=== PATIENT | female | born 1940 | race Caucasian/White ===

== ENCOUNTER 2021-09-03 09:01 | Inpatient (IN) | payer MEDICARE ==
[~2021-09-03] VITALS: Ht 160 cm; Wt 78.0 kg
--- NOTE | ~2021-09-03 | EMS ---
[address] [address] EMS Patient Care Report Name: ZHANNA BELL Room #: REG ERNA Wray#: [id number] Admission: 09/03/21 Attend Phys: Discharge: Date of : 44 Report #: [id number] THIS REPORT FOR: //name// Report Transmitted: 09/03/2021 08:27 EMS Care Summary [facility] MED-ACT Incident [id number] @ 09/03/2021 08:16 Incident Location [address] [place] [address] Patient ZHANNA BELL Female, 81 Years 1940 Patient Address [address] [place] [address] Patient History Diabetes,Hypertension (HTN),Hyperlipidemia,Gastro-Esophageal Reflux Disease (GERD),Morbid Obesity, Patient Allergies Phenergan, Patient Medications Metformin, Glipizide, Atorvastatin, Ibandronate, Tamsulosin, Losartan, Chief Complaint Dizziness. Disposition Transported No Lights/[place] Dispatch Reason Sick Person Transported To [facility] Narrative History: Pt reports she has been feeling weak and fatigued for the last week. Pt reports that over the course of the last week, all she has wanted to do is sleep. Pt reports that over the last couple of days, she has developed N/V/D. [address] [address] EMS Patient Care Report Name: ZHANNA BELL Room #: REG ERNA Wray#: [id number] Admission: 09/03/21 Attend Phys: Discharge: Date of : 44 Report #: [id number] Pt states that this morning, she now feels dizzy, and is unable to get around her house without becoming dizzy and nauseated. Pt denies any chest pain or shortness of breath. Pt denies any recent fevers. Pt reports she has a family member who has been experiencing flu-like symptoms. No other complaints noted at this time. Assessment: Pt was found laying supine in bed in the company of S47 responders. Pt ABCs intact. Pt A&Ox4. Pt did not appear to be in any acute distress. See assessment tab for detailed physical exam findings and pertinent negatives. Treatment: Primary. VS. HPI. PMH. Physical exam. 12-lead ECG. Pt was ambulatory with assistance to EMS stretcher in hallway of home. Pt secured in semi-cordero's position. Pt moved via stretcher to ambulance. Transport: En route, continue with on-going assessment. [facility]ocom to [facility]. Pt VS and condition remained stable and unchanged during reassessment. Destination: Pt was brought via stretcher to ED room 3. Pt moved via lateral sheet drag to hospital bed. Report provided to attending RN. Pt signed. Care transferred. Initial Vitals @PTAP: 92,BP: 171/81,SpO2: 96, @08:32P: 86,SpO2: 98,OK Suspected: false @08:45P: 98,R: 18,BP: 159/95, @PTAP: 92,R: 18,BP: 165/80,Pain: 0/10,GCS: 15,Temp: 96.9F,Glucose: 118,SpO2: 96,Revised Trauma: 12, Impression Nausea Procedures @08:32 12-Lead ECG @08:45 Surgical Mask on Patient Response: Unchanged Timeline STONE DRESSER,BP: 171/81 M,PULSE: 92,RR: R,SPO2: 96 Ox,ETCO2: ,BG: ,PAIN: ,GCS: , STONE DRESSER,BP: 165/80 M,PULSE: 92,RR: 18 R,SPO2: 96 Ox,ETCO2: ,B,PAIN: 0,GCS: 15, 08:14,Call Received 08:14,Psap Call 08:16,Dispatched 08:17,En Route 08:26,On Scene [address] [place] [address] EMS Patient Care Report Name: ZHANNA BELL Room #: REG Kamala#: [id number] Admission: 09/03/21 Attend Phys: Discharge: Date of : 44 Report #: [id number] 08:28,At Patient 08:32,12-Lead ECG, 08:32,BP: / M,PULSE: 86,RR: R,SPO2: 98 Ox,ETCO2: ,BG: ,PAIN: ,GCS: , 08:45,BP: 159/95 M,PULSE: 98,RR: 18 R,SPO2: Ox,ETCO2: ,BG: ,PAIN: ,GCS: , 08:45,Surgical Mask on Patient,Response: Unchanged 08:48,Depart Scene 08:56,At Destination 09:17,Call Closed Disclaimer v1.1 Copyright 2021 [employer] This EMS Care Summary contains data elements from the applicable legal record (which may be displayed differently). It is designed to provide pertinent information for the following purposes: continuity of care, clinical quality, and state data reporting. The complete legal record is available to ED staff and administrators of the receiving hospital in [employer]'s Patient Tracker. All data is provided "as is."
[2021-09-03 09:07] VITALS: BP 150/83
[2021-09-03 09:48] LABS: ABSOLUTE NEUTROPHILS 4.4 thou/uL (1.4-8.2); BASOPHILS 1.3 % (0.0-2.0); EOSINOPHILS 2.8 % (0.0-3.0); HEMATOCRIT 28.5 % (37.0-47.0); HEMOGLOBIN 10.6 gm/dL (12.0-15.0); LYMPHOCYTES 30.3 % (24.0-44.0); MCH 35.5 pg (26.0-34.0); MCHC 37.3 g/dL (28.0-37.0); MCV 95.2 fL (80.0-100.0); MONOCYTES 7.6 % (1.0-8.0); PLATELET COUNT 311 thou/uL (150-400); RBC 2.99 mil/uL (4.20-5.00); RDW 15.5 % (10.5-14.5); WBC 7.6 thou/uL (4.0-11.0)
[2021-09-03 10:15] LABS: CALCIUM 9.1 mg/dL (8.5-10.1); CREATININE 1.1 mg/dL (0.6-1.0); POTASSIUM 4.2 mmol/L (3.5-5.1)
[2021-09-03 10:24] LABS: TOTAL BILIRUBIN 0.4 mg/dL (0.2-1.0); TOTAL PROTEIN 6.8 g/dL (6.4-8.2)
[2021-09-03 10:47] LABS: URINE BILIRUBIN NEGATIVE (Negative); URINE BLOOD 1+ (Negative); URINE CLARITY CLOUDY; URINE COLOR YELLOW; URINE GLUCOSE-RANDOM* NEGATIVE (Negative); URINE KETONES NEGATIVE (Negative); URINE NITRITE-REFLEX NEGATIVE (Negative); URINE PROTEIN (DIPSTICK) TRACE (Negative); URINE SPECIFIC GRAVITY 1.015 (1.005-1.035); URINE UROBILINOGEN 0.2 E.U./dl (0.2-1.0)
[2021-09-03 10:54] LABS: URINE LEUKOCYTES-REFLEX 3+ (Negative)
[2021-09-03 11:04] LABS: SQUAMOUS 4-10 Moderate /LPF (0-3)
[2021-09-03 11:05] LABS: URINE WBC-REFLEX >25 Many /HPF (0-5)
[2021-09-03 11:06] LABS: BACTERIA-REFLEX >30 Many /HPF (None Seen); CASTS None Seen /LPF (None Seen); CRYSTALS None Seen /LPF (None Seen); URINE RBC 1-2 Rare /HPF (NONE SEEN)
[2021-09-04 02:30] VITALS: BP 166/77
--- NOTE | 2021-09-04 09:44 | EKG ---
[place] [address] [facility] [place] [address] ELECTROCARDIOGRAM REPORT Name: ZHANNA BELL Room #: 170-3 ADM IN M.R.#: [id number] Admission: 09/03/21 Attend Phys: Joo Ramos MD Discharge: Date of : 44 Report #: [id number] [facility] ED Test Date: 2021-09-03 Test Time: 10:36:00 Pat Name: ZHANNA BELL Department: Room: 170 Gender: F [employer]: tien : 1940 Requested By: Vickey Chamorro Order Number: [id number] MD: Jason Hameed Measurements Intervals Meno Rate: 68 P: 41 MO: 148 QRS: 2 QRSD: 85 T: 54 QT: 398 QTc: 424 Interpretive Statements Sinus rhythm Compared to ECG 10/20/1996 01:28:00 No significant changes Electronically Signed On 09-04-2021 9:43:48 BAND TUMBLER by Jason Hameed [email or web address] <ELECTRONICALLY SIGNED> By: Jason Hameed MD, [facility] 09/04/21 0943 [id number] [id number] Jason Hameed MD, FACC /EPI
[2021-09-04] MEDS ORDERED: ESOMEPRAZOLE MA40 MG PO (09:59)
[2021-09-04] MEDS ORDERED: LOSARTAN POTASS50 MG PO (09:59)
[2021-09-04] MEDS ORDERED: URECHOLINE 25 M25 M2 PO (09:59)
[2021-09-04] MEDS ORDERED: METFORMIN HCL500 MG PO (09:59)
[2021-09-04] MEDS ORDERED: LIPITOR 40 MG T40 M1 PO (10:00)
[2021-09-04] MEDS ORDERED: FLOMAX0.4 MG PO (10:01)
[2021-09-04] MEDS ORDERED: GLIPIZIDE5 MG PO (10:01)
[2021-09-04 10:34] LABS: HEMATOCRIT 32.6 % (37.0-47.0); HEMOGLOBIN 10.6 gm/dL (12.0-15.0); MCH 28.1 pg (26.0-34.0); MCHC 32.7 g/dL (28.0-37.0); RBC 3.78 mil/uL (4.20-5.00); RDW 15.4 % (10.5-14.5); WBC 8.3 thou/uL (4.0-11.0)
[2021-09-04 10:42] LABS: CREATININE 1.1 mg/dL (0.6-1.0); POTASSIUM 4.2 mmol/L (3.5-5.1)
--- NOTE | 2021-09-04 11:31 | NUR ---
PT'S HOME HEALTH AGENCY-VISITING NURSES [phone]-CALLS TO INFORM THIS NURSE THAT PATIENT'S DAUGHTER CALLED WITH CONCERNS FOR PATIENT'S SAFETY AT HOME. STATES PATIENT LIVES WITH FAMILY THAT DOES NOT CARE FOR HER AND [facility] OPENED AN INVESTIGATION RECENTLY. WILL NOTIFY ADMITTING DOCTOR AND REQUEST SOCIAL WORK CONSULT PRIOR TO DISCHARGE
[2021-09-04 16:31] VITALS: BP 158/63
[2021-09-05 01:40] VITALS: BP 149/66
--- NOTE | 2021-09-05 02:09 | NUR ---
PT REQUESTING TO WALK IN HALLWAYS, EXPLAINED TO PT THAT THERE IS LESS STAFF AT 0200 AND WE ARE NOT ABLE TO DO THAT A THIS TIME. PT REQUSTING TO HAVE HER MARX AND SUDEEP AREA CLEANED, REQUEST FULFILLED. PT ALSO ASKING FOR PHYSICAL THERAPY TO WORK WITH HER AND SOME MEDICATION FOR HER NERVES. PROVIDER NOTIFIED AND ORDERS OBTAINED
[2021-09-05 12:15] VITALS: BP 149/66
--- NOTE | 2021-09-05 12:20 | NUR ---
Case opened to follow for dc planning. Pt current in ER boarding and being treated for UTI. The pt is currently on service with [facility] home health and has nursing, therapy and a bath aide. Pt lives with dtr and grand children and is normally indep with gait and adl's. She reports dtr helps with cooking and shopping. The pt has a sevilla cath for retention and sees urology. Her pcp is Dr. Robert Sepulveda [phone]. Therapy evals are in progress. The pt has a rwalker and cane at home if needed. Message rec'd from [facility] regarding possible hotline to [place] dept of aging and concerns that pt may need 24hr care if family can not provide. Medicare Sales Representative spoke with Jacki at [facility] for more details and to talk with the RN ALYIAH working with the pt and family. Medicare Sales Representative unable to reach the pt's dtr Amanda with the number listed. Awaiting PT eval to determine if pt is safe to return home with HH or if snf/rehab is indicated.
[2021-09-05] MEDS ORDERED: CEPHALEXIN500 MG PO (12:55)
[2021-09-05] MEDS ORDERED: MECLIZINE HCL25 M1 PO (12:59)
[2021-09-05 13:29] VITALS: BP 149/66
--- NOTE | 2021-09-05 16:47 | NUR ---
home health orders faxed to [facility].
== END 2021-09-05 13:29 | disposition home health service (06) | DRG 690 ==
LOC: ER 09:01 → EROBS 15:23
PROVIDERS: Emergency Medicine; ADMIT Hospitalist; ATTEND Hospitalist
DX: N39.0 Urinary tract infection, site not specified (principal); E11.9 Type 2 diabetes mellitus without complications; E78.5 Hyperlipidemia, unspecified; I10 Essential (primary) hypertension; Z20.822 Contact with and (suspected) exposure to COVID-19; Z79.899 Other long term (current) drug therapy; Z88.8 Allergy status to other drugs, medicaments and biological substances